=== PATIENT | female | born 1980 | race Caucasian/White ===

== ENCOUNTER 2018-01-18 05:52 | Inpatient (IN) | payer BC ==
[2018-01-18] VITALS (7 sets, daily range): BP systolic 115–137; BP diastolic 67–86
[~2018-01-18] VITALS: Ht 167.6 cm; Wt 132.7 kg
[~2018-01-18 05:52] MED LIST: PRENATAL TABLE1 EACH PO; TUMS500 MG PO; TYLENOL EXTRA500 MG PO
[2018-01-18 07:16] LABS: BASOPHIL (%) 0.2 % (0-1); EOSINOPHIL (%) 1.8 % (0-5); EOSINOPHIL COUNT 0.2 K/uL (0-0.3); HEMATOCRIT 35.7 % (36.0-46.0); HEMOGLOBIN 12.1 G/DL (11.9-15.5); IMMATURE GRANULOCYTE (%) 0.3 % (0.0-0.7); LYMPHOCYTE (%) 18.2 % (15-42); LYMPHOCYTE COUNT 2.2 K/uL (1.0-2.8); MCH 31.1 PG (29.0-34.0); MCHC 33.9 G/DL (30.0-36.0); MCV 91.8 FL (83-99); NEUTROPHIL (%) 71.5 % (45-76); NEUTROPHIL COUNT 8.7 K/uL (1.8-6.4); PLATELET COUNT 169 K/uL (156-360); RBC DIS.WIDTH-CV 13.2 % (11.8-14.6); RBC DIS.WIDTH-SD 43.6 % (39-53); RED BLOOD COUNT 3.89 M/uL (3.80-5.20); WHITE BLOOD COUNT 12.1 K/uL (4.1-10.2)
[2018-01-18 07:49] LABS: CHLORIDE 104 MEQ/L (99-109); CREATININE 0.7 MG/DL (0.6-1.3); GFR ESTIMATE (CALCULATED) > 59 mL/min/; GLUCOSE 95 mg/dL (70-99); POTASSIUM 3.8 MEQ/L (3.7-5.4); SODIUM 137 MEQ/L (136-147); UREA NITROGEN (BUN) 9 mg/dL (9-23)
[2018-01-19 03:00] VITALS: BP 118/71
[2018-01-19 06:55] LABS: BASOPHIL (%) 0.2 % (0-1); EOSINOPHIL (%) 0.3 % (0-5); HEMATOCRIT 30.3 % (36.0-46.0); HEMOGLOBIN 10.1 G/DL (11.9-15.5); IMMATURE GRANULOCYTE (%) 0.4 % (0.0-0.7); LYMPHOCYTE (%) 15.1 % (15-42); LYMPHOCYTE COUNT 2.3 K/uL (1.0-2.8); MCH 30.7 PG (29.0-34.0); MCHC 33.3 G/DL (30.0-36.0); MCV 92.1 FL (83-99); MONOCYTE (%) 7.2 % (3-12); MONOCYTE COUNT 1.1 K/uL (0-0.8); NEUTROPHIL (%) 76.8 % (45-76); NEUTROPHIL COUNT 11.4 K/uL (1.8-6.4); PLATELET COUNT 157 K/uL (156-360); RBC DIS.WIDTH-CV 13.2 % (11.8-14.6); RBC DIS.WIDTH-SD 44.4 % (39-53); RED BLOOD COUNT 3.29 M/uL (3.80-5.20); WHITE BLOOD COUNT 14.9 K/uL (4.1-10.2)
[2018-01-19 07:12] VITALS: BP 91/46
[2018-01-19 07:50] VITALS: BP 93/55
[2018-01-19 10:42] VITALS: BP 116/69
[2018-01-19 14:49] VITALS: BP 112/67
[2018-01-20 07:21] VITALS: BP 102/62
[2018-01-20] MEDS ORDERED: CHROMAGEN,1 CAPSULE PO (09:17)
[2018-01-20] MEDS ORDERED: ENDOCET 5-3251 EACH PO (09:17)
[2018-01-20] MEDS ORDERED: IBUPROFEN800 MG PO (09:17)
== END 2018-01-20 12:30 | disposition home or self-care (01) | DRG 765 ==
LOC: 2WEST 05:52 → 2SOUTH 08:21 → 2WEST 01-20 12:30
PROVIDERS: Obstetrics & Gynecology Obstetrics
DX: O34.211 Maternal care for low transverse scar from previous cesarean delivery (principal); Z30.2 Encounter for sterilization; O99.02 Anemia complicating childbirth; D62 Acute posthemorrhagic anemia; O92.29 Other disorders of breast associated with pregnancy and the puerperium; O99.62 Diseases of the digestive system complicating childbirth; K21.9 Gastro-esophageal reflux disease without esophagitis; O24.420 Gestational diabetes mellitus in childbirth, diet controlled; O99.214 Obesity complicating childbirth; E66.9 Obesity, unspecified; O34.13 Maternal care for benign tumor of corpus uteri, third trimester; D25.9 Leiomyoma of uterus, unspecified; Z68.42 Body mass index [BMI] 45.0-49.9, adult; Z88.5 Allergy status to narcotic agent; Z3A.39 39 weeks gestation of pregnancy; Z37.0 Single live birth
CPT/HCPCS: 80048; 82948; 85025; 86850; 86900; 86901; 88302; J0690; J1100; J1885; J2274; J2405; J3010; J7120